=== PATIENT | male | born 1980 | race Caucasian/White ===

== ENCOUNTER 2019-07-03 11:10 | Emergency (ER) | payer OTHER ==
--- NOTE | 2019-07-03 11:46 | Event Note ---
ED Screening Note Date of service: 07/03/19 Time: 11:41 ED Screening Note: 39 y/o male comes in for right shoulder pain that radiates down his arm since 06/22/19. Denies any injuries. Works in a warehouse. PMH COPD. Has being taking Aleve for pain. Blood pressure is elevated in triage. This initial assessment/diagnostic orders/clinical plan/treatment(s) is/are subject to change based on patients health status, clinical progression and re- assessment by fellow clinical providers in the ED. Further treatment and workup at subsequent clinical providers discretion. Patient/guardian urged not to elope from the ED as their condition may be serious if not clinically assessed and managed. Initial orders include:
--- NOTE | 2019-07-03 11:51 | Emergency Department Report ---
Chief Complaint: Extremity Injury, Upper Stated Complaint: RT SIDE NECK/ARM PAIN Time Seen by Provider: 07/03/19 11:40 - HPI History of Present Illness: 39 y/o male comes in for right shoulder pain that radiates down his arm - ROS Review of Systems: right shoulder and arm pain. no chest pain. no trauma - Exam Vital Signs: Vital Signs 07/03/19 07/03/19 11:41 11:44 Temperature 98.4 F Pulse Rate 92 H Respiratory 18 Rate Blood Pressure 141/101 Blood Pressure 152/101 [Right] O2 Sat by Pulse 99 Oximetry Physical Exam: AxO times 3. 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 MSE screening note: Focused history and physical exam performed. Due to findings the following was ordered: Patient has been evaluated by by this provider for right shoulder pain. Rx for Ibuprofen 800 mg tid referral to orthopedic. ED Disposition for MSE Clinical Impression: Shoulder pain, right Disposition: DC-01 TO HOME OR SELFCARE Is pt being admited?: No Does the pt Need Aspirin: No Condition: Stable Additional Instructions: Take pain medication as prescribed. Follow up with a primary care provider. Prescriptions: Ibuprofen [Motrin 800 MG tab] 800 mg PO Q8HR PRN #30 tablet PRN Reason: Pain , Severe (7-10) Referrals: CHANDLER BLANCO MD [Staff Physician] - 3-5 Days Forms: Work/School Release Form(ED)
[2019-07-03 12:16] VITALS: BP 137/99
== END 2019-07-03 14:19 | disposition home or self-care (01) ==
LOC: ED 11:10
DX: M25.511 Pain in right shoulder (principal)
CPT/HCPCS: 99282